=== PATIENT | female | born 2000 | race Caucasian/White ===

== ENCOUNTER 2022-11-30 11:54 | Emergency (ER) | payer MEDICAID, SELFPAY ==
[2022-11-30] VITALS (22 sets, daily range): BP systolic 103–129; BP diastolic 69–82; PULSE 85–90; RESP 16–18; TEMP 36.7; O2SAT 95–100; BMI 30.2
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
[2022-11-30] MEDS: ketorolac 60 mg/2 mL INJ IM (13:32)
--- NOTE | 2022-12-07 10:50 | DCPLANNER ---
feed mill manager called patient due to no primary care physician - no answer at this time.
== END 2022-11-30 14:51 | disposition home or self-care (01) ==
PROVIDERS: Emergency Provider Physician Assistant
DX: S30.0XXA Contusion of lower back and pelvis, initial encounter (principal); F17.210 Nicotine dependence, cigarettes, uncomplicated; V44.6XXA Car passenger injured in collision with heavy transport vehicle or bus in traffic accident, initial encounter
CPT/HCPCS: 72100; 72170; 96372; 99284; J1885

== ENCOUNTER → 2023-01-02 12:08 | Outpatient (BNVA) | payer MEDICAID, SELFPAY | PROVIDERS: Visit Provider Registered Nurse Neonatal Intensive Care | DX: R30.0 Dysuria (principal); Z71.1 Person with feared health complaint in whom no diagnosis is made; N76.0 Acute vaginitis; B96.89 Other specified bacterial agents as the cause of diseases classified elsewhere | CPT/HCPCS: 81000; 87491; 87591; 87661 ==